=== PATIENT | female | born 1990 | race Caucasian/White ===

== ENCOUNTER 2021-10-13 09:00 | Emergency (ER) | payer BC | END 2021-10-13 11:05 | disposition home or self-care (01) | LOC: ER1 09:00 | DX: J06.9 Acute upper respiratory infection, unspecified (principal); Z20.822 Contact with and (suspected) exposure to COVID-19; Z88.2 Allergy status to sulfonamides | CPT/HCPCS: 0240U; 99283 ==

== ENCOUNTER 2021-12-22 05:05 | Emergency (ER) | payer BC ==
[2021-12-22 06:41] LABS: HEMOGLOBIN 13.5 gm/dl (12.3-15.3); RED BLOOD COUNT 4.3 M/UL (4.00-5.10); WHITE BLOOD COUNT 6.2 K/UL (4.5-11.0)
[2021-12-22 07:10] LABS: BUN/CREATININE RATIO 8 (0-10)
[2021-12-22] MEDS ORDERED: OMNICEF 300 MG300 MG PO (09:59)
== END 2021-12-22 10:30 | disposition home or self-care (01) ==
LOC: ER1 05:05
PROVIDERS: Family Medicine
DX: N39.0 Urinary tract infection, site not specified (principal); Z88.2 Allergy status to sulfonamides
CPT/HCPCS: 80053; 81001; 83605; 84703; 85025; 87040; 87077; 87086; 87186; 96374; 96375; 99284; J0696; J1885; J2405